=== PATIENT | female | born 1965 | race Caucasian/White ===

== ENCOUNTER 2023-12-17 05:16 | Day surgery (SDC) | payer OTHER ==
[2023-12-16 09:27] VITALS: BMI 42.0
[2023-12-17] MEDS ORDERED: ACETAMINOPHEN 325 MG TABLET (FP) ONE (10:36)
[2023-12-17 10:52] VITALS: RESP 18; TEMP 99
[2023-12-17] MEDS: ACETAMINOPHEN 325 MG TABLET (FP) PO PRN (10:54)
[2023-12-17 12:17] VITALS: BP 113/57; PULSE 62
== END 2023-12-17 12:17 | disposition home or self-care (01) ==
LOC: JASU-ENDO 05:16
PROVIDERS: ATTEND Internal Medicine Gastroenterology
PROC: 0DBL8ZX Excision of Transverse Colon, Via Natural or Artificial Opening Endoscopic, Diagnostic (ICD-10-PCS; principal; 2023-12-17 10:00)
DX: Z12.11 Encounter for screening for malignant neoplasm of colon (principal); D12.3 Benign neoplasm of transverse colon; K57.30 Diverticulosis of large intestine without perforation or abscess without bleeding; Z86.010 Personal history of colon polyps
CPT/HCPCS: 88305-TC